=== PATIENT | male | born 1955 | race Caucasian/White ===

== ENCOUNTER → 2020-07-20 09:52 | Outpatient (CLI) | payer OTHER | END | disposition home or self-care (01) | LOC: D.RAD 07-01 10:00 | DX: S09.92XA Unspecified injury of nose, initial encounter (principal); M13.80 Other specified arthritis, unspecified site; S02.2XXA Fracture of nasal bones, initial encounter for closed fracture; T14.8XXA Other injury of unspecified body region, initial encounter ==